=== PATIENT | male | born 2000 | race Caucasian/White ===

== ENCOUNTER 2022-08-18 02:22 | Emergency (ER) | payer BC ==
[2022-08-18] MEDS ORDERED: Acetaminophen 500 MG TAB ONE (03:25)
[2022-08-18] MEDS ORDERED: Bacitracin 1 PK ONE (03:54)
== END 2022-08-18 03:53 | disposition home or self-care (01) ==
LOC: ERS 02:22
DX: S01.01XA Laceration without foreign body of scalp, initial encounter (principal); W17.89XA Other fall from one level to another, initial encounter
CPT/HCPCS: 12002; 70450; 72125